=== PATIENT | female | born 1965 | race Two or more races ===

== ENCOUNTER 2018-07-28 19:32 | Emergency (ER) | payer OTHER ==
[~2018-07-28] VITALS: Ht 160 cm; Wt 72.6 kg
[2018-07-28 20:07] VITALS: Ht 160 cm; Wt 72.6 kg
[2018-07-28 21:12] VITALS: BP 115/82
== END 2018-07-28 21:12 | disposition home or self-care (01) ==
LOC: ED 19:32
DX: S20.219A Contusion of unspecified front wall of thorax, initial encounter (principal); V49.49XA Driver injured in collision with other motor vehicles in traffic accident, initial encounter; Y93.I9 Activity, other involving external motion; Y92.413 State road as the place of occurrence of the external cause; Y99.8 Other external cause status
CPT/HCPCS: Q0092

== ENCOUNTER 2020-05-26 13:55 | Emergency (ER) | payer OTHER ==
[~2020-05-26] VITALS: Ht 152.4 cm; Wt 67.6 kg
[2020-05-26 14:02] VITALS: Ht 152.4 cm; Wt 67.6 kg
[2020-05-26 15:12] VITALS: BP 130/74
== END 2020-05-26 15:12 | disposition home or self-care (01) ==
LOC: ED 13:55
DX: S83.242A Other tear of medial meniscus, current injury, left knee, initial encounter (principal); X58.XXXA Exposure to other specified factors, initial encounter; Y93.89 Activity, other specified; Y92.89 Other specified places as the place of occurrence of the external cause; Y99.8 Other external cause status

== ENCOUNTER 2020-05-26 19:53 | Emergency (ER) | payer OTHER ==
[~2020-05-26] VITALS: Ht 152.4 cm; Wt 68.0 kg
[2020-05-26 20:23] VITALS: BP 130/68
== END 2020-05-26 22:28 | disposition home or self-care (01) ==
LOC: ED 19:53
DX: M17.12 Unilateral primary osteoarthritis, left knee (principal)